=== PATIENT | female | born 1955 | race Two or more races ===

== ENCOUNTER 2023-10-17 11:00 | Inpatient (IN) | payer OTHER ==
[~2023-10-17] VITALS: Ht 157.5 cm; Wt 81.6 kg
[~2023-10-17 11:00] MED LIST: ASA81 MG; CALTRATE 600 +1 EACH; GABAPENTIN100 MG PO; GLIMEPIRIDE4 MG; INSULIN GL100 UNIT/3; LANTUS; LOTREL 10/20 CA1 CAP; NABUMETONE500 MG PO; NORFLEX100MG PO; OXYC1TAB9 PO; PERCOCET 5/3251 TAB PO; PRESERVISION A1 EAC1; REFRESH TEARS15 ML; RESTORIL30 M1 PO; SIMVASTATIN20 MG; SINGULAIR10 MG PO; TOUJEO SOL300 UNIT/1 SC; VITAMIN D310 MCG/1 M; VITAMIN E PO; VITAMIN E1000 UNI1; VITAMINA D PO; XARELTO10 MG PO; [UNRECOGNIZED DRUG - OTHER]; restoril PO
[2023-10-24] MEDS ORDERED: CEFAZOLIN SODIUM 1,000 MG VIAL ONE (13:29)
[2023-10-24] MEDS ORDERED: KETOROLAC TROMETHAMINE 60 MG VIAL IM ONE ×2 (13:30→15:00)
[2023-10-24] MEDS ORDERED: ONDANSETRON HCL 2 MG/ML VIAL IV PRN (14:00)
[2023-10-24] MEDS ORDERED: OxyCODONE HCL/APAP UD (PERCOCET) PO PRN (14:00)
[2023-10-24] MEDS ORDERED: MORPHINE SULFATE 4 MG/ML VIAL IV ONE (15:00)
[2023-10-24] MEDS ORDERED: CEFAZOLIN SODIUM 1,000 MG VIAL IV ONE (15:00)
[2023-10-24] MEDS ORDERED: TRANEXAMIC ACID 100MG/1ML (1000MG) AMPUL IV ONE ×2 (15:00)
[2023-10-24] MEDS ORDERED: LIDOCAINE HCL 1%/Epi 20ML VIAL IJ ONE (15:00)
[2023-10-24] MEDS ORDERED: BUPIVACAINE HCL 30 ML VIAL IJ ONE (15:00)
[2023-10-24] MEDS ORDERED: DEXTROSE 50 % IN WATER 0.5 G/ML DISP.SYRIN IV PRN (16:45)
[2023-10-24] MEDS ORDERED: INSULIN LISPRO 1,000 UNIT/10 ML UNITS SUBCUTANEO PRN (16:45)
[2023-10-24] MEDS ORDERED: SIMVASTATIN 20 MG TABLET PO SCH (17:00)
[2023-10-24] MEDS ORDERED: MORPHINE SULFATE 4 MG/ML CARTRIDGE IV SCH (18:00)
[2023-10-24] MEDS ORDERED: CEFAZOLIN SODIUM 1,000 MG VIAL IV SCH (18:00)
[2023-10-24] MEDS ORDERED: TEMAZEPAM 15 MG CAPSULE PO SCH (21:00)
[2023-10-24] MEDS ORDERED: GABAPENTIN 100 MG CAPSULE PO SCH (21:00)
[2023-10-24] MEDS ORDERED: ORPHENADRINE CITRATE 100 MG TABLET PO SCH (21:00)
[2023-10-25 01:10] LABS: HEMATOCRIT 33.7 % (36.0-45.00); MEAN CELL VOLUME 83.9 fL (80.00-100.00); MEAN CORPUSCULAR HEMOGLOBIN 27.4 pg (27.00-32.0); MEAN CORPUSCULAR HGB CONC 32.7 g/dl (32.0-36.0); PLATELET COUNT 242 K/uL (150-450); RED BLOOD COUNT 4.02 M/uL (4.00-6.00)
[2023-10-25] MEDS ORDERED: ENOXAPARIN SODIUM 30 MG/0.3 ML SYRINGE SUBCUTANEO SCH (09:00)
[2023-10-25] MEDS ORDERED: VITAMIN B COMPLEX 1 EACH PO SCH (17:17)
[2023-10-25] MEDS ORDERED: SOD FERRIC GLUC COMPLX/SUCROSE 62.5 MG/5 ML AMPUL IV SCH (17:18)
[2023-10-25] MEDS ORDERED: Cyanocobalamin/Mecobalamin 1 TAB.SL SL SCH (17:18)
[2023-10-26 01:37] LABS: HEMATOCRIT 31.2 % (36.0-45.00); HEMOGLOBIN 10.5 g/dL (12.0-15.00); MEAN CELL VOLUME 82.4 fL (80.00-100.00); MEAN CORPUSCULAR HEMOGLOBIN 27.7 pg (27.00-32.0); MEAN CORPUSCULAR HGB CONC 33.6 g/dl (32.0-36.0); PLATELET COUNT 216 K/uL (150-450); RED BLOOD COUNT 3.79 M/uL (4.00-6.00); RED CELL DISTRIBUTION WIDTH 14.1 % (11.5-14.5)
[2023-10-26] MEDS ORDERED: OXYC1TAB9 PO (11:56)
[2023-10-26] MEDS ORDERED: NORFLEX100MG PO (11:56)
[2023-10-26] MEDS ORDERED: GABAPENTIN100 MG PO (11:56)
[2023-10-26] MEDS ORDERED: XARELTO10 MG PO (11:57)
== END 2023-10-26 14:48 | disposition home or self-care (01) | DRG 470 ==
LOC: SURH 10-23 11:00 → OB/GYN 10-24 06:48 → O/R 10-24 06:48 → OB/GYN 10-24 17:02
PROVIDERS: ADMIT Orthopaedic Surgery; ATTEND Orthopaedic Surgery
PROC: 0SRD0JZ Replacement of Left Knee Joint with Synthetic Substitute, Open Approach (ICD-10-PCS; principal; 2023-10-24 12:00)
DX: M17.12 Unilateral primary osteoarthritis, left knee (principal); D62 Acute posthemorrhagic anemia; M85.662 Other cyst of bone, left lower leg; R26.89 Other abnormalities of gait and mobility; I10 Essential (primary) hypertension; E11.9 Type 2 diabetes mellitus without complications; Z79.4 Long term (current) use of insulin; Z79.84 Long term (current) use of oral hypoglycemic drugs